=== PATIENT | female | born 1945 | race Caucasian/White ===

== ENCOUNTER 2016-05-26 11:39 | Inpatient (IN) | payer OTHER ==
--- NOTE | 2016-05-26 12:43 | PROVIDER DOCUMENTATION ---
HPI-General Adult <ChanDivina - Last Filed: 05/26/16 15:49> - General Source: patient, family - History of Present Illness -Gen Adult Nature of Presenting Problems: 71 year old WF c/o head ache, "the worst I have ever had," cough (productive yellow/green sputum), fever (max temp 100 at home) sore throat, fatigue, weakness, onset 4 days ago. pt reports she was exposed to grandchildren with fever, cough and congestion. pt reports she was evaluated by her PMD for these symptoms on Sunday, diagnosed as a viral infection, given a steroid injection. she then called her PMD back on because she was not improving. she was given a z-pack, which she has take for 2 days and still not improving. pt reports decreased intake for 4 days. pt is a diabetic and has not been taking her victoza and other diabetic medications as prescribed. <Kylee Lobo AlanAdelina - Last Filed: 05/26/16 20:16> - General Chief Complaint: Flu Symptoms Stated Complaint: HEADACHE/CONGESTION Time Seen by Provider: 05/26/16 11:52 Allergies/Adverse Reactions: Patient Allergies Allergy/AdvReac Type Severity Reaction Status Date / Time erythromycin base Allergy Severe ANAPHYLAXIS Verified 08/04/15 11:04 [Erythromycin Base] Sulfa (Sulfonamide Allergy Intermediate HIVES Verified 08/04/15 11:04 Antibiotics) Penicillins Allergy Unknown Unknown Verified 08/04/15 11:04 codeine AdvReac Mild NAUSEA/VOMI Verified 08/04/15 11:04 TING Latex, Natural Rubber AdvReac RASH Verified 08/05/15 07:12 Home Medications: Metformin [Glucophage] 2 tab PO BID CC 03/20/13 Oxcarbazepine 150 mg PO BID 03/20/13 Duloxetine [Cymbalta] 60 mg PO DAILY 08/04/15 L. Rhamnosus/Inulin [Culturelle Capsule] 1 each PO BID 08/04/15 Loperamide [Imodium] 2 mg PO PRN PRN 08/04/15 Losartan [Cozaar] 100 mg PO DAILY 08/04/15 Omeprazole 40 mg PO DAILY 08/04/15 Review of Systems - Adult - REVIEW OF SYSTEMS - ADULT Constitutional: reports: see HPI, chills, fever, fatique. denies: night sweats , weight gain, weight loss Eyes: reports: no symptoms reported. denies: discharge, blurred vision, double vision, eye pain, redness Ears, Nose, Mouth & Throat: reports: see HPI, sinus problem, nose pain, throat pain, throat swelling. denies: ear discharge, ear pain (bilateral ear pressure) , hearing loss, tinnitus, epistaxis, loose teeth, mouth/dental pain, mouth swelling, hoarseness Cardiovascular: reports: no symptoms reported. denies: chest pain, palpitations Respiratory: reports: see HPI, cough, shortness of breath. denies: chronic cough, dyspnea on exertion, excessive sputum production, hemoptysis, pleurisy, wheezing Gastrointestinal: reports: no symptoms reported. denies: abdominal pain, diarrhea, nausea, vomiting Genitourinary: reports: no symptoms reported. denies: dysuria, hematuria, urgency Musculoskeletal: reports: no symptoms reported. denies: bone pain, joint pain, joint swelling, neck pain Integumentary: reports: no symptoms reported Neurological: reports: see HPI, headache/migraines. denies: ataxia, dizziness/ vertigo, loss of balance, numbness, paresthesia, seizure, slurred speech, syncope, tremors Psychiatric: reports: no symptoms reported Endocrine: reports: no symptoms reported. denies: increased thirst, polyuria Hematologic/Lymphatic: reports: no symptoms reported Allergic/Immunologic: reports: no symptoms reported. denies: frequent infections All Other Systems: Reviewed and Negative <Kylee Lobo - Last Filed: 05/26/16 20:16> Past History - Adult - PAST MEDICAL HISTORY-ADULT Review of Records: reports: Old Records Reviewed, Nursing Assessment Review, Medications Reviewed, Social history reviewed & non-contributory. Major Childhood Illnesses: reports: denies history Cardiovascular: reports: HTN Respiratory: reports: asthma Gastrointestinal: reports: GERD Obstetrical/Gynecological: reports: denies history Genitourinary: reports: denies history Musculoskeletal: reports: denies history Neurological: reports: denies history Endocrine/Immune: reports: Diabetes Diabetes Type: Type 2 Diabetes controlled by:: Diet, PO Meds Other Conditions: reports: denies history - FAMILY HISTORY Family History: reviewed, not pertinent - SOCIAL HISTORY Smoking: denies Substance Use: none/never Alcohol Use Frequency: never <Kylee Lobo - Last Filed: 05/26/16 20:16> Physical Exam-General - PHYSICAL EXAM-ADULT Initial Vital Signs Reviewed: Yes - CONSTITUTIONAL General Appearance: appears well, alert, no apparent distress. negative: mild distress, moderate distress, severe distress, lethargic, slow to respond, obtunded, combative - EYES Eyes: pink conjunctivae. negative: conjuctival exudate, pale conjunctivae, sclera injected, scleral icterus, subconjunctival hemorrhage - HEAD, EARS, NOSE, MOUTH & THROAT HENMT: normocephalic/atraumatic, moist mucous membranes, pharyngeal erythema, TM abnormal (right TM with air fluid level), frontal tenderness, maxillary tenderness, other (temporal/sphnoidal sinus tenderness). negative: normal ENT inspection, TMs normal, pharynx normal, TM obscurred by cerumen - NECK Neck: non-tender, full range of motion, supple, normal inspection. negative: C- spine tenderness, limited range of motion, lymphadenopathy, tender lateral, tender midline - RESPIRATORY Respiratory: chest non-tender, lungs clear, normal breath sounds. negative: no pleuratic chest pain, no respiratory distress, no accessory muscle use, respiratory distress, decreased breath sounds, accessory muscle use, crackles, rales, rhonchi, stridor, wheezing - CARDIOVASCULAR Cardiovascular: normal peripheral pulses, regular rate, rhythm, no edema. negative: bradycardia, tachycardia - CHEST (BREASTS) Chest/Breast: no tenderness. negative: tenderness - GASTROINTESTINAL (ABDOMEN) Abdominal Exam: normal bowel sounds, non tender, soft. negative: distended, guarding, rigid, rebound, tenderness - GENITOURINARY Female Genitalia/Pelvic Exam: deferred Rectal Exam: deferred Hemoccult Exam: deferred - LYMPHATIC Lymphatic: no adenopathy. negative: cervical node tenderness - MUSCULOSKELETAL Back Exam: normal inspection, no CVA tenderness, no vertebral tenderness. negative: CVA tenderness, decreased range of motion, vertebral tenderness Extremity: normal range of motion, non-tender, normal gait, normal inspection, no pedal edema, no calf tenderness, normal capillary refill. negative: swelling , tenderness Peripheral Pulses: radial (R): 3+, radial (L): 3+, dorsalis-pedis (R): 3+, dorsalis-pedis (L): 3+ - SKIN Integumentary: normal color, normal turgor, warm/dry. negative: pallor, petechiae, purpura, rash - NEUROLOGIC Neurologic: solaris administrator II-XII nml as tested, grossly normal, no motor/sensory deficits . negative: abnormal gait, aphasia, EOM palsy, facial droop, focal weakness, motor weakness, sensory deficit - PSYCHIATRIC Psych/Mental Status: normal mood/affect, normal thought content, normal thought process, oriented x 3 <Kylee Lobo - Last Filed: 05/26/16 20:16> Progress - EKG 1 Time of EKG reading by physician:: 11:49 EKG Read and Signed by:: Nahid Ayon EKG Interpretation (*Must complete 3 of following elements*): Abnormal Rate: 74 Rhythm: normal sinus rhythm Comments: possible L atrial enlargement; L axis deviation; low voltage QRS <Divina Giles - Last Filed: 05/26/16 15:49> - PLAN OF CARE/RESULTS Progress/Plan/Lab Results: Notified pt of plan of care and treatment. Agrees and verbalized understanding. Laboratory Tests 05/26/16 05/26/16 05/26/16 13:02 13:30 13:30 WBC 17.81 H RBC 5.33 Hgb 16.2 H Hct 46.1 MCV 86.5 MCH 30.4 MCHC 35.1 RDW Std Deviation 13.1 Plt Count 276 MPV 10.2 Immature Gran % (Auto) 0.3 Neut % (Auto) 61.9 Lymph % (Auto) 28.5 Angelina % (Auto) 7.1 Eos % (Auto) 1.8 Baso % (Auto) 0.4 Immature Gran # (Auto) 0.05 H Neut # 11.01 H Lymph # 5.08 H Angelina # 1.27 H Eos # 0.32 Baso # 0.08 Specimen Type ARTERIAL Sample Site L RADIAL pH 7.44 pCO2 37 pO2 64 HCO3 25.7 Base Excess 1.2 Oxyhemoglobin 92.9 L ABG O2 Sat (Calculated) 20.1 ABG O2 Saturation 96.7 ABG Carboxyhemoglobin 2.40 ABG Methemoglobin 1.5 Danilo Test YES A-a O2 Difference 39.0 Total Hemoglobin 15.4 Lactate 1.80 Blood Gas Modality ROOM AIR FiO2 % 21.0 Sodium Potassium Chloride Carbon Dioxide Anion Gap BUN Creatinine Estimated GFR/1.73 m2 BUN/Creatinine Ratio Glucose Calculated Osmolality Calcium Total Bilirubin AST ALT Alkaline Phosphatase Total Protein Albumin Globulin Albumin/Globulin Ratio Plasma Lactate 2.7 H Urine Source Urine Color Urine Turbidity Urine pH Ur Specific [place] Urine Protein Ur Glucose (Stick) Ur Ketones (Stick) Urine Blood Urine Nitrite Urine Bilirubin Urobilinogen Dipstick Urine Leukocytes Urine WBC (Auto) Urine RBC (Auto) U Epithel Cells (Auto) Urine Bacteria (Auto) Acetone Level 05/26/16 05/26/16 13:30 16:12 WBC RBC Hgb Hct MCV MCH MCHC RDW Std Deviation Plt Count MPV Immature Gran % (Auto) Neut % (Auto) Lymph % (Auto) Angelina % (Auto) Eos % (Auto) Baso % (Auto) Immature Gran # (Auto) Neut # Lymph # Angelina # Eos # Baso # Specimen Type Sample Site pH pCO2 pO2 HCO3 Base Excess Oxyhemoglobin ABG O2 Sat (Calculated) ABG O2 Saturation ABG Carboxyhemoglobin ABG Methemoglobin Danilo Test A-a O2 Difference Total Hemoglobin Lactate Blood Gas Modality FiO2 % Sodium 136 Potassium 4.4 Chloride 98 Carbon Dioxide 25 Anion Gap 13 BUN 15 Creatinine 0.8 Estimated GFR/1.73 m2 > 60 BUN/Creatinine Ratio 19 Glucose 191 H Calculated Osmolality 278 Calcium 9.2 Total Bilirubin 0.29 AST 20 ALT 22 Alkaline Phosphatase 76 Total Protein 6.7 Albumin 3.8 Globulin 2.9 Albumin/Globulin Ratio 1.3 Plasma Lactate Urine Source CLEAN CATCH Urine Color YELLOW Urine Turbidity CLEAR Urine pH 6.5 Ur Specific [place] 1.010 Urine Protein NEGATIVE Ur Glucose (Stick) NEGATIVE Ur Ketones (Stick) NEGATIVE Urine Blood NEGATIVE Urine Nitrite NEGATIVE Urine Bilirubin NEGATIVE Urobilinogen Dipstick NORMAL Urine Leukocytes TRACE A Urine WBC (Auto) <10 Urine RBC (Auto) <10 U Epithel Cells (Auto) <10 Urine Bacteria (Auto) NEGATIVE Acetone Level NEGATIVE Orders Category Date Time Status Saline Loc NOW Care 05/26/16 12:34 Active Diabetic Diet Diet 05/26/16 14:12 Active HEAD W/O CONTRAST [CT] Stat Exams 05/26/16 12:38 Completed cxr [CHEST-2 VIEWS] [RAD] Stat Exams 05/26/16 12:09 Draft ABG [RESP] Routine Lab 05/26/16 13:02 Completed ACETONE SERUM [CHEM] Stat Lab 05/26/16 16:12 Completed BLOOD CULTURE [BLDCUL] Stat Lab 05/26/16 15:45 Results CBC WITH DIFF [HEME] Stat Lab 05/26/16 13:30 Completed CMP [COMPREHENSIVE METABOLIC PANEL] [CHEM] Stat Lab 05/26/16 16:12 Completed DIRECT STREP Stat Lab 05/26/16 13:06 Completed INFLUENZA SCREEN A/B Stat Lab 05/26/16 12:14 Completed LACTATE, PLASMA [CHEM] Stat Lab 05/26/16 13:30 Completed SPUTUM CULTURE WITH GRAM STAIN [RM] Routine Lab 05/26/16 13:35 Results UA NIMS W/REFLEX CULT [URINALYSIS] Stat Lab 05/26/16 13:30 Completed URINE CULTURE [RM] Routine Lab 05/26/16 14:04 Received 0.9% Sodium Chloride Inj [Ns] 1,000 ml Med 05/26/16 15:20 Discontinued IV 999 mls/hr Levofloxacin [Levaquin] 500 mg Med 05/26/16 14:52 Discontinued 0.9% Sodium Chloride Inj [Ns] 100 ml IV NOW Morphine Med 05/26/16 13:42 Discontinued 2 mg IV NOW ONE Ondansetron [Zofran] Med 05/26/16 13:42 Discontinued 4 mg IV NOW ONE Pulse Oximetry Stat Oth 05/26/16 12:34 Active EKG [EKG] Stat Ther 05/26/16 11:47 Draft Vital Signs - 24 hr 05/26/16 05/26/16 05/26/16 11:44 14:14 15:55 Temperature 97.7 F Pulse Rate 81 73 80 Respiratory 20 14 16 Rate Blood Pressure 198/82 157/64 117/60 O2 Sat by Pulse 98 96 93 L Oximetry Reviewed case with Dr. Ayon, agrees with plan of care and treatment. - XRAY 1 XRAY Study: Chest Impression: Normal (per Dr. Linares) - CT/MRI 1 CT Study: Head Impression: Abnormal (Complete ossification of the right maxiallary sinus and marked mucosal thickening in the left. There is mucosal thickening and fluid in most of the ethmoid air cells bilaterally. the left sphneoid sinus demonstrates mucosal thickening as well. The frontal sinuses are clear. No evidence of middle ear fluid or mastoid effusion. per Dr. Jacobson.) - CONSULTS/PCP/HOSPITALIST Notification #1 *Consult/PCP/Hospitalist*: Paged hospitalist-spoke with Jakub who will have hospitalist call back Time Discussed: 16:53 #2 Consult: Dr. Nix Time Discussed: 17:08 Consult Disposition: Will see in ED, Admit <Kylee Lobo - Last Filed: 05/26/16 20:16> Departure <Divina Giles - Last Filed: 05/26/16 15:49> - Departure Time of Disposition Order: 13:30 Certified Medical Emergency: Emergent <Kylee Lobo - Last Filed: 05/26/16 20:16> - Departure DIAGNOSIS: Sinusitis Qualifiers: Sinusitis location: sphenoidal Chronicity: acute Recurrence: non-recurrent Qualified Code(s): J01.30 - Acute sphenoidal sinusitis, unspecified Sepsis Qualifiers: Sepsis type: sepsis due to unspecified organism Qualified Code(s): A41.9 - Sepsis, unspecified organism Disposition: ADMITTED INPATIENT 09 Condition: Stable Attestation - Scribe Verification/Attestation Scribe:: Divina Giles Acting as Scribe for:: Nahid Ayon Scribe documention review:: This chart was documented by a scribe and accurately reflects the service the provider performed and the decisions made by the provider. <Divina Giles - Last Filed: 05/26/16 15:49> - Physician/ Mid-level Attestation Patient care was provided by Mid-level provider ([employer] SUPERVISOR/PA):: Yes Mid-level provider:: Kylee Lobo Mid-level documentation review:: The Mid-level provider documentation, treatment plan and medical decision making was reviewed by the physician who agrees with all treatment and medical decision making by the P. <Kylee Lobo - Last Filed: 05/26/16 20:16> Physician Attestation
--- NOTE | 2016-05-26 12:53 | EKG Report ---
Test Performed on : 05/26/2016 11:49:15 AM Test Reason : sob Blood Pressure : / mmHG Vent. Rate : 074 BPM Atrial Rate : 074 BPM P-R Int : 160 ms QRS Dur : 094 ms QT Int : 410 ms P-R-T Axes : 043 -36 048 degrees QTc Int : 455 ms Normal sinus rhythm. Possible Left atrial enlargement Left axis deviation Low voltage QRS Abnormal ECG When compared with ECG of 04-AUG-2015 11:19, No significant change was found Unconfirmed Result
[2016-05-26 13:12] LABS: ALLEN TEST YES; BE 1.2 mmoll (-3.0-3.0); BLOOD TYPE ARTERIAL; DRAW SITE L RADIAL; METHB 1.5 % (0.0-1.5); O2(CT) 20.1 mL/dL (15.0-23.0); PCO2(98.6) 37 mmHg (35-45); PO2(98.6) 64 mmHg (60-100); SAMPLE BLOOD; SAO2 96.7 % (95.0-100.0); THB 15.4 g/dL (11.5-17.4); pH(98.6) 7.44 (7.35-7.45)
[2016-05-26 13:13] LABS: MODALITY ROOM AIR
--- NOTE | 2016-05-26 13:28 | Diag Imaging Result Document ---
PROCEDURE NAME: HEAD W/O CONTRAST - 05/26/2016 CT OF THE HEAD WITHOUT CONTRAST: FINDINGS: There is no evidence of bleed, mass effect, or abnormal extraaxial fluid collection. There is generalized cerebral atrophy. There are no previous studies. There is complete opacification of the right maxillary sinus and marked mucosal thickening in the left. There is mucosal thickening and fluid in most of the ethmoid air cells bilaterally. The left sphenoid sinus demonstrates mucosal thickening as well. The frontal sinuses are clear. There is no evidence of middle ear fluid or mastoid effusion. IMPRESSION: Sinusitis as described. No evidence of acute intracranial disease.
[2016-05-26] MEDS ORDERED: MORPHINE IV ONE (13:42)
[2016-05-26] MEDS ORDERED: ZOFRAN IV ONE (13:42)
[2016-05-26 13:44] LABS: MANUAL DIFF NEEDED? NO; URINE MICRO REVIEW NEEDED? NO; URINE SOURCE CLEAN CATCH
[2016-05-26 13:57] LABS: BILIRUBIN URINE NEGATIVE (NEGATIVE); BLOOD URINE NEGATIVE (NEGATIVE); COLOR YELLOW; GLUCOSE URINE NEGATIVE (NEGATIVE); LEUKOCYTES URINE TRACE (NEGATIVE); NITRITE URINE NEGATIVE (NEGATIVE); PH URINE 6.5; PROTEIN URINE NEGATIVE (NEGATIVE); TURBIDITY URINE CLEAR (CLEAR); UR EPITHELIAL CELLS <10 /HPF (<10); URINE BACTERIA NEGATIVE /HPF; URINE CULTURE NEEDED? YES; URINE RBC <10 /HPF (<10); URINE WBC <10 /HPF (<10); UROBILINOGEN URINE NORMAL (NORMAL)
[2016-05-26 14:00] LABS: BASO% 0.4 % (0.0-0.8); EOS# 0.32 X1000 (0.0-0.7); EOS% 1.8 % (0.0-10.0); HEMATOCRIT 46.1 % (37.0-47.0); HEMOGLOBIN 16.2 g/dL (12.0-16.0); IMM GRAN# 0.05 X1000 (0.0-0.04); IMM GRAN% 0.3 % (0.0-0.5); LYMPH# 5.08 X1000 (1.2-3.4); LYMPH% 28.5 % (20.5-51.1); MCH 30.4 PG (27-31); MCHC 35.1 g/dL (33-37); MCV 86.5 FL (81-99); MONO# 1.27 X1000 (0.11-0.59); MONO% 7.1 % (1.7-9.3); MPV 10.2 FL (7.4-10.4); NEUT% 61.9 % (42.2-75.2); PLT 276 X1000 (130-400); RBC 5.33 XMIL (4.2-5.4)
[2016-05-26] MEDS ORDERED: LEVAQUIN 500 MG in NS 100 ML IV ONE (14:52)
--- NOTE | 2016-05-26 14:57 | Diag Imaging Result Document ---
PROCEDURE NAME: CHEST-2 VIEWS - 05/26/2016 CHEST X-RAY, 2 VIEWS: COMPARISON: 08/04/2015. FINDINGS: The lungs are normally expanded and clear. Heart size and mediastinal contours are normal. No pneumothorax or pleural effusion. IMPRESSION: Negative exam.
[2016-05-26] MEDS ORDERED: NS 1,000 ML IV ONE (15:20)
[2016-05-26 16:39] LABS: ACETONE SERUM NEGATIVE (NEGATIVE)
[2016-05-26 16:47] LABS: AGAP 13; ALBUMIN 3.8 g/dL (3.5-5.0); ALKALINE PHOSPHATASE 76 U/L (32-104); BUN 15 mg/dL (8-22); CALCIUM 9.2 mg/dL (8.8-10.2); CHLORIDE 98 mmol/L (98-107); COSMO 278; GOT 20 U/L (10-30); GPT 22 U/L (10-36); POTASSIUM 4.4 mmol/L (3.5-5.1); SODIUM 136 mmol/L (136-145); TCO2 25 mmol/L (25-35); TOTAL BILIRUBIN 0.29 mg/dL (0.20-1.00); TOTAL PROTEIN 6.7 g/dL (6.3-8.3)
[2016-05-26] MEDS: MORPHINE IV PRN (20:07)
[2016-05-26] MEDS ORDERED: DUONEB (A & A) INH PRN (20:22)
[2016-05-26] MEDS: NS 1,000 ML IV SCH (20:57)
[2016-05-26] MEDS: ZOFRAN IV PRN (20:57)
[2016-05-26] MEDS: DESYREL PO PRN (20:57)
[2016-05-26 21:00] LABS: HEMOGLOBIN A1C 8.7 % (4.8-6.0)
[2016-05-26] MEDS: MERREM 1 GM in NS 50 ML IV SCH (21:00)
[2016-05-26] MEDS: HUMALOG SUBQ SCH (21:11)
--- NOTE | 2016-05-26 21:43 | HISTORY AND PHYSICAL ---
CHIEF COMPLAINT: Cold-like symptoms. HISTORY OF PRESENT ILLNESS: Mrs. Seals is a 71-year-old female with a history of type 2 diabetes, hypertension, hyperlipidemia, who presents with chest congestion, cough, headache, shortness of breath and sinus pain and pressure. She also reports a low-grade fever. She went to her PCP last week and got a steroid shot and antibiotics, these were unsuccessful in treating her symptoms. Symptoms progressed to severe headache, nasal discharge, cough with green sputum production and overall malaise. She tried a 2nd round of antibiotics and these 2 were unsuccessful and she came to the ER for evaluation. She denies any overt chest pain. She does report mild shortness of breath. There is no lower extremity edema or orthopnea. She does report blurry vision but no focal deficits. When she came to the ER she was noted to have leukocytosis, mildly elevated lactic acid but otherwise unremarkable labs. Her head CT showed fairly acute left- sided sinusitis but no intracranial disease. A chest x-ray was done and it did not show anything acute. Blood cultures were obtained in the ER and antibiotics were initiated. We are going to admit the patient for sepsis. PAST MEDICAL HISTORY: 1. Type 2 diabetes. 2. Hypertension. 3. Hyperlipidemia. 4. Childhood asthma. SURGICAL HISTORY: Partial hysterectomy, appendectomy, cholecystectomy, eardrum procedure. SOCIAL HISTORY: Patient denies tobacco, alcohol, or drug use. She is and retired. FAMILY HISTORY: Noncontributory. REVIEW OF SYSTEMS: Ten-point review of systems obtained and found to be negative with the exception of the HPI. ALLERGIES: TO ERYTHROMYCIN, SULFA, PENICILLIN, CODEINE AND LATEX. HOME MEDICATIONS: Currently not updated but previous list shows oxcarbazepine 150 mg b.i.d., Zofran 4 mg as needed, omeprazole 40 mg daily, metformin 1000 mg p.o. b.i.d., Cozaar 100 mg p.o. daily, Imodium as needed, Colver 10 as needed and Cymbalta 60 daily. PHYSICAL EXAMINATION: VITAL SIGNS: Blood pressure is 137/64, heart rate 81, respiratory rate 16, O2 saturation 94% on room air. Temperature is 98.5 degrees. GENERAL: Well developed, well nourished female lying in hospital bed. No acute distress. NEUROLOGIC: She is awake, alert, oriented. She follows commands without focal deficits. HEENT: Head atraumatic, normocephalic. Pupils are equal, round, and reactive to light. There is sinus tenderness to palpation. Oral mucosa is moist. Oropharynx is clear. She does have some mild tonsillar erythema. NECK: Supple. There is anterior cervical lymphadenopathy. CHEST: Overall clear to auscultation bilaterally. CV: Regular rate and rhythm. S1-S2 is noted. No murmurs, gallops, clicks, rubs. GI: Soft, nondistended, nontender. Bowel sounds positive. EXTREMITIES: Without edema, clubbing or cyanosis. Pulses are palpable bilaterally. DIAGNOSTIC DATA: Head CT shows acute left maxillary sinusitis. Chest x-ray negative. ASSESSMENT AND PLAN: 1. Sepsis: Patient meets criteria for sepsis with low-grade fever, leukocytosis, lactic acid production. Blood cultures, sputum cultures and throat cultures have been obtained, we will add Merrem and SHE IS ALLERGIC TO PENICILLIN. Will continue IV fluid hydration and pain medication as well. 2. Sinusitis: Blood cultures have been obtained. Continue Merrem, add breathing treatments as well for upper respiratory congestion. 3. Diabetes mellitus: Will check a hemoglobin A1c in the morning, add pattern blood sugars and sliding scale insulin. 4. Hypertension: Will restart her medications once they become available in the computer. 5. Hyperlipidemia: Chronic and stable. Will continue her medications once they become available. 6. Deep vein thrombosis prophylaxis with Lovenox. Further recommendations to follow. Dictated by DULCE MARIA Castillo for Cj Langston MD
[2016-05-26] MEDS: DUONEB (A & A) INH SCH (23:12)
[2016-05-27] MEDS: DUONEB (A & A) INH SCH ×6 (03:56→22:44)
[2016-05-27] MEDS: MERREM 1 GM in NS 50 ML IV SCH ×3 (05:22→21:15)
[2016-05-27] MEDS: NS 1,000 ML IV SCH ×3 (05:23→21:15)
[2016-05-27] MEDS: HUMALOG SUBQ SCH ×4 (06:45→21:21)
[2016-05-27 06:57] LABS: HEMATOCRIT 36.7 % (37.0-47.0); HEMOGLOBIN 12.5 g/dL (12.0-16.0); MCHC 34.1 g/dL (33-37); MPV 9.6 FL (7.4-10.4); RBC 4.17 XMIL (4.2-5.4)
[2016-05-27 07:33] LABS: AGAP 12; BUN 12 mg/dL (8-22); CALCIUM 8.1 mg/dL (8.8-10.2); CHLORIDE 102 mmol/L (98-107); COSMO 284; POTASSIUM 4.1 mmol/L (3.5-5.1); SODIUM 140 mmol/L (136-145); TCO2 26 mmol/L (25-35)
[2016-05-27] MEDS: MORPHINE IV PRN ×2 (08:38→21:22)
[2016-05-27] MEDS: LOVENOX SUBQ SCH (08:38)
[2016-05-27] MEDS: ZOFRAN IV PRN ×2 (08:42→21:22)
--- NOTE | 2016-05-27 18:19 | PROGRESS NOTE ---
DATE: 05/27/2016 SUBJECTIVE: This patient states that she is feeling better but she is still having face pain, she denies nausea, vomiting, diarrhea, constipation. No fever or chills. OBJECTIVE: Vital Signs: Temperature 99 degrees, pulse 81, respiratory rate 19, blood pressure 146/50, O2 saturation 100% on nasal cannula. HEENT: Head normocephalic. No trauma. PERRLA. There is sinus tenderness to palpation mostly, oral mucosa is moist. Mild tonsillar erythema. Neck: Supple. No JVD. No masses. Anterior cervical lymphadenopathy. Chest: Clear to auscultation. No wheezing. No rales. Cardiovascular: RRR. No murmurs. No gallops. No rubs. Abdomen: Soft, nontender, nondistended. No hepatosplenomegaly. Extremities: No edema. No clubbing. No cyanosis. Neurological: The patient is alert and oriented x3. No focal neurological deficits. LABORATORY: WBC 9.3, hemoglobin 12.5, hematocrit 36.7, platelets 191,000. Sodium 140, potassium 4.1, chloride 102, bicarbonate 26, BUN 12, creatinine 0.8, glucose 192, calcium 8.1. ASSESSMENT AND PLAN: 1. Sinusitis. Will continue with the antibiotics, she is on Merrem. SHE IS ALLERGIC TO PENICILLIN. I will continue with IV fluid and hydration. 2. Sepsis resolved. 3. Type 2 diabetes. We will continue with the pattern of blood sugars and sliding scale insulin. 4. Hypertension. We will continue with her blood pressure medication. 5. Hyperlipidemia. This is chronic and stable. Continue with medications.
[2016-05-28] MEDS: DUONEB (A & A) INH SCH ×6 (02:55→23:15)
[2016-05-28] MEDS: MERREM 1 GM in NS 50 ML IV SCH ×3 (03:56→22:29)
[2016-05-28] MEDS: NS 1,000 ML IV SCH ×4 (03:56→22:29)
[2016-05-28] MEDS: HUMALOG SUBQ SCH ×4 (06:06→22:29)
[2016-05-28 07:11] LABS: CALCIUM 8.1 mg/dL (8.8-10.2); POTASSIUM 4.5 mmol/L (3.5-5.1)
[2016-05-28] MEDS: LOVENOX SUBQ SCH (08:06)
[2016-05-28 08:42] LABS: HEMATOCRIT 34.5 % (37.0-47.0); HEMOGLOBIN 11.4 g/dL (12.0-16.0); MCH 29.6 PG (27-31); MCV 89.6 FL (81-99); RBC 3.85 XMIL (4.2-5.4)
[2016-05-28] MEDS: ZOFRAN IV PRN ×2 (11:10→18:45)
[2016-05-28] MEDS: MORPHINE IV PRN ×2 (11:10→18:45)
--- NOTE | 2016-05-28 15:53 | PROGRESS NOTE ---
DATE: 05/28/2016 SUBJECTIVE: This patient states that she is feeling better. She is still complaining about facial pain, mostly her forehead, she denies nausea, vomiting, diarrhea, constipation, fever or chills. OBJECTIVE: Vital Signs: Temperature 97.9 degrees, pulse 83, respiratory rate 15, blood pressure 141/53, oxygen saturation 93% on room air. HEENT: Head normocephalic. No trauma. PERRLA. There is sinus tenderness to palpation, mostly on the forehead and bilaterally. Neck: Supple. No JVD. No masses. Anterior cervical lymphadenopathy. Chest: Clear to auscultation. No wheezing. No rales. Cardiovascular: Regular rhythm and rate. No murmurs. No gallops. No rubs. Abdomen: Soft, nontender, nondistended. No hepatosplenomegaly. Extremities: No edema. No clubbing. No cyanosis. Neurological: The patient is alert and oriented x3. No focal neurological deficits. LABORATORY: WBC 9.3, hemoglobin 11.4, hematocrit 34.5, platelets 183,000. Sodium 141, potassium 4.5, chloride 104, bicarbonate 26, BUN 12, creatinine 1, glucose 180, calcium 8.1. ASSESSMENT AND PLAN: 1. Sinusitis. I will continue with the antibiotics. She is on Merrem. She is allergic to penicillin. I will continue with IV fluid and hydration. 2. Sepsis, resolved. 3. Type 2 diabetes. We will continue with the pattern blood sugars and sliding scale insulin. 4. Hypertension. I will continue with her blood pressure medication. 5. Hyperlipidemia this is chronic and stable. Continue with medications.
[2016-05-29] MEDS: DUONEB (A & A) INH SCH ×6 (03:21→23:38)
[2016-05-29] MEDS: MERREM 1 GM in NS 50 ML IV SCH ×3 (05:00→21:02)
[2016-05-29] MEDS: HUMALOG SUBQ SCH ×4 (06:04→23:25)
[2016-05-29 06:41] LABS: HEMOGLOBIN 11.3 g/dL (12.0-16.0)
[2016-05-29 06:55] LABS: HEMATOCRIT 34.1 % (37.0-47.0); MCHC 33.1 g/dL (33-37); MCV 90.5 FL (81-99); MPV 9.6 FL (7.4-10.4); RBC 3.77 XMIL (4.2-5.4)
[2016-05-29 07:10] LABS: CALCIUM 8.7 mg/dL (8.8-10.2); POTASSIUM 4.3 mmol/L (3.5-5.1)
[2016-05-29] MEDS: LOVENOX SUBQ SCH (08:45)
[2016-05-29] MEDS: NS 1,000 ML IV SCH ×2 (08:45→23:28)
[2016-05-29 09:42] LABS: INR 0.97; PROTIME 10.3 Seconds (9.2-11.7)
--- NOTE | 2016-05-29 11:13 | CONSULTATION ---
DATE OF CONSULTATION: 05/29/2016 CONCLUSION: The patient has pansinusitis. Although the CT scan showed involvement of all the sinuses, except the frontal sinuses, on physical exam, the frontal sinuses were very tender. Therefore, I think that there is an element of frontal sinusitis as well as the other sinusitis, and because of that, I think the patient would be considered to have pansinusitis. I think there is a possibility that the patient has an immunoglobulin deficiency. RECOMMENDATIONS: Because of the patient's penicillin allergy, I agree with treating the patient with meropenem. A PICC will be needed and I am going to put a consult in for [facility] to supply the patient's antibiotics. I plan to see her back in the office in 3 weeks, at which time, we will see how she is doing and probably repeat her CAT scan to see if everything is clearing. If the immunoglobulin levels are low, then wait a few weeks and order them again. If they are still low, then I think the patient would merit being put on gammaglobulin replacement therapy. DISCUSSION: This elderly female in the past 2 weeks has had very severe head congestion and pain. She also has been having chest congestion as well. She coughs, but does not bring up any sputum. LABORATORY STUDIES: Thus far show a CBC with a white count of 8570, hemoglobin 11.3, and platelet count 183,000. Creatinine is 1.0 GFR is 54. Urine culture grew strep. Blood cultures show no growth. 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 She has had a hysterectomy. REVIEW OF SYSTEMS: Eyes and ears: Patient denies having difficulty hearing or seeing. Neck: No stiffness. HEENT: As mentioned above, the patient is having very severe headache. She feels very congested in her head due to sinusitis. She can hear my spoken words and see near objects. Examination of the oral cavity showed no white patches. Neck: No meningismus. Thorax: No increased AP diameter to the chest. Lungs: Clear to auscultation. Cardiovascular: No chest pain or palpitations. GI: No nausea, vomiting, or diarrhea. : No dysuria or flank pain. Hematologic: No history of anemia or bleeding tendency. Endocrine: The patient is diabetic, but she does not have thyroid disease. PAST MEDICAL HISTORY: Infectious disease history: Positive for urinary tract infection and recurrent sinusitis. FAMILY HISTORY: Positive for diabetes mellitus, hypertension, myocardial infarction, and cancer. SOCIAL HISTORY: [place] She is . She lives alone. Does not have any pets. ALLERGIES: She has an allergy to erythromycin manifested by anaphylaxis. To sulfa, manifested by hives. To penicillin, the allergy is unknown. She is allergic to codeine and sounds like more it is an adverse reaction, rather than a true allergy. Anyway, the manifestation is nausea and vomiting. Patient also has an allergy to latex and natural rubber, which causes her to have a rash. HOME MEDICATIONS: Include the following: Oxcarbazepine, Zofran, omeprazole, insulin, Cymbalta, Cozaar, Victoza and Amaryl. PHYSICAL EXAMINATION: Vital Signs: Temperature is 98.2, pulse 84, respirations 14, blood pressure 168/68. General: This is an ill-appearing, elderly female. She is in no acute distress. HEENT: She can hear my spoken words and see near objects. No drainage noted from the nose or ears. Examination of the oral cavity shows no white patches. The patient's frontal and maxillary sinuses were very tender when I applied pressure to them. Lungs: Clear to auscultation. Cardiovascular: Regular heart rate. Abdomen: Abdomen and flank soft and nontender. Neurologic: Patient is alert. She can move her extremities. There is no tremor. Her sensation is intact to touch. Her memory, as regarding her medical history is intact also. Thank you for the consult.
[2016-05-29] MEDS: ZOFRAN IV PRN ×2 (11:35→18:32)
[2016-05-29] MEDS: MORPHINE IV PRN ×2 (11:35→18:32)
--- NOTE | 2016-05-29 13:23 | PROGRESS NOTE ---
DATE: 05/29/2016 SUBJECTIVE: This patient states that she is feeling better. She is still complaining about facial pain, but compared with yesterday, it is better. OBJECTIVE: Vital Signs: Temperature 98.2 degrees, pulse 80, respiratory rate 14, blood pressure 168/68, oxygen saturation 96 on nasal cannula. HEENT: Head normocephalic. No trauma. PERRLA. There is sinus tenderness to palpation, mostly on the forehead bilaterally. Neck: Supple. No JVD. No masses. Anterior cervical lymphadenopathy. Chest: Clear to auscultation. No wheezing. No rales. Cardiovascular: Regular rate and rhythm. No murmurs. No gallops. No rubs. Abdomen: Soft, nontender, nondistended. No hepatosplenomegaly. Extremities: No edema, no cyanosis, no clubbing. Neurological: The patient is alert and oriented x3. No focal neurological deficits. LABORATORY DATA: WBC 8.5, hemoglobin 11.3, hematocrit 34.1, platelets 193,000. Sodium 139, potassium 4.3, chloride 102, bicarbonate 26, BUN 13, creatinine 1, glucose 195, calcium 8.7. ASSESSMENT AND PLAN: 1. Sinusitis. We will continue with antibiotics. She is on Merrem. She is allergic to penicillin. This patient will get a peripherally-inserted central catheter line, and probably this patient will be discharged on these antibiotics. 2. Sepsis, resolved. 3. Type 2 diabetes. We will continue with patterned blood sugars and sliding scale insulin. 4. Hypertension. We will continue with her blood pressure medication. 5. Hyperlipidemia. This is chronic and stable. Continue with home medications.
[2016-05-30] MEDS: NS 1,000 ML IV SCH ×2 (02:56→13:16)
[2016-05-30] MEDS: DUONEB (A & A) INH SCH ×6 (03:37→23:06)
[2016-05-30] MEDS: MERREM 1 GM in NS 50 ML IV SCH ×2 (05:00→18:51)
[2016-05-30] MEDS: HUMALOG SUBQ SCH ×4 (06:42→22:32)
[2016-05-30] MEDS ORDERED: DULCOLAX PO ONE (08:17)
[2016-05-30] MEDS ORDERED: VANCOMYCIN IV PER PHARMACY MISC SCH (08:30)
--- NOTE | 2016-05-30 08:47 | PROGRESS NOTE ---
DATE: 05/30/2016 PRESENT ILLNESS: The patient has pansinusitis. She states that her sinuses are even bothering her more now. She is having headaches and a lot of congestion. In addition, the patient tells me that she has not had a bowel movement for 3 days and would like to have 1. She wants a pill to be taken by mouth to help her have a bowel movement. Finally, the patient may have an immunoglobulin deficiency. The patient does have a Streptococcal urinary tract infection which now seems asymptomatic. MEDICATIONS: The patient is receiving meropenem. PHYSICAL EXAMINATION: Vital Signs: Temperature is 98.1 degrees, pulse 90, respirations 15, blood pressure 162/60. General: This is an ill-appearing, elderly female. She is in no acute distress. Head, Eyes, Ears, Nose, Throat: No drainage noted from the nose or ears. She is very tender over her frontal and maxillary sinuses. Lungs: Clear to auscultation. Cardiovascular: Heart rate is regular. Abdomen: Soft and nontender. LAB AND X-RAY: There is no new lab or x-ray today. ASSESSMENT AND PLAN: As far as the patient's sinusitis goes, I am adding vancomycin to provide coverage for methicillin-resistant Staph aureus. Also, I am adding Flonase to help the patient have her sinuses drained. As regarding her constipation, I have ordered Dulcolax tablets to give her 1 now and then 1 daily on a p.r.n. basis. The patient, while not needing treatment of her urinary tract infection, will in fact be getting treatment by virtue of the fact of the antibiotic she is getting for her sinusitis. The patient's comorbidities include that she is elderly. As mentioned above, she may have an immunoglobulin deficiency. The patient also has diabetes mellitus as a comorbid factor.
[2016-05-30] MEDS ORDERED: VANCOMYCIN 1,500 MG in NS 250 ML IV ONE (09:00)
[2016-05-30] MEDS: LOVENOX SUBQ SCH (09:40)
--- NOTE | 2016-05-30 10:32 | CONSULTATION ---
DATE OF CONSULTATION: 05/29/2016 ADDENDUM REPORT: MEDICAL HISTORY: This includes type 2 diabetes, hypertension, hyperlipidemia and childhood asthma. SURGICAL HISTORY: Positive for hysterectomy, appendectomy, cholecystectomy and ear drum procedure.
[2016-05-30] MEDS: FLONASE NAS SCH ×2 (13:15→22:25)
[2016-05-30] MEDS: MORPHINE IV PRN ×2 (13:17→20:22)
[2016-05-30] MEDS: ZOFRAN IV PRN ×2 (13:18→20:22)
[2016-05-30] MEDS ORDERED: BENADRYL IV ONE (14:33)
--- NOTE | 2016-05-30 16:48 | PROGRESS NOTE ---
DATE: 05/30/2016 SUBJECTIVE: The patient states that she is not feeling well. She feels more pressure in the face. Infectious Disease Department evaluated this patient and they added vancomycin to her medications and Flonase. Will monitor. OBJECTIVE: Vital Signs: Temperature 99.1 degrees, pulse 91, respiratory rate 16, blood pressure 153/69, O2 saturation 95 on room air. HEENT: Head normocephalic. No trauma. PERRLA. There is sinus tenderness to palpation mostly on the forehead bilaterally and also all in the paranasal area. Neck: Supple. No JVD. No masses. Anterior cervical lymphadenopathy is present. Chest: Clear to auscultation. No wheezing. No rales. Abdomen: Soft, nontender, nondistended. No hepatosplenomegaly. Positive bowel sounds. Cardiovascular: RRR. No murmurs. No gallops. No rubs. Extremities: No edema. No clubbing. No cyanosis. Neurological: The patient is alert and oriented x3. No focal neurological deficits. LABORATORY: No lab work today. ASSESSMENT AND PLAN: 1. Sinusitis. We will continue with the antibiotics. She is on Merrem. Infectious Disease Department added vancomycin. She will get a PICC line and probably she will be discharged, I am assuming, in 1 or 2 days to home with home antibiotics. 2. Sepsis, resolved. 3. Type 2 diabetes. This patient has been receiving more than 20 units per day. I am going to put this patient on 15 of Lantus and I will adjust the medication as needed. 4. Hypertension. Will continue with her blood pressure medication. 5. Hyperlipidemia. This is chronic and stable. Continue with home medications.
[2016-05-30] MEDS ORDERED: INSULIN PEN NEEDLES ONE (22:21)
[2016-05-30] MEDS: LANTUS SUBQ SCH (22:27)
[2016-05-31] MEDS: NS 1,000 ML IV SCH ×2 (00:55→12:49)
[2016-05-31] MEDS: MERREM 1 GM in NS 50 ML IV SCH ×3 (02:25→18:38)
[2016-05-31] MEDS: DUONEB (A & A) INH SCH ×6 (03:40→22:56)
[2016-05-31] MEDS: HUMALOG SUBQ SCH ×4 (06:02→21:16)
[2016-05-31 06:34] LABS: MANUAL DIFF NEEDED? NO
[2016-05-31 06:40] LABS: BASO% 0.6 % (0.0-0.8); EOS# 0.32 X1000 (0.0-0.7); HEMOGLOBIN 11.5 g/dL (12.0-16.0); IMM GRAN# 0.05 X1000 (0.0-0.04); IMM GRAN% 0.6 % (0.0-0.5); LYMPH# 2.02 X1000 (1.2-3.4); LYMPH% 25.3 % (20.5-51.1); MCH 29.7 PG (27-31); MCHC 32.9 g/dL (33-37); MCV 90.4 FL (81-99); MONO# 0.61 X1000 (0.11-0.59); MONO% 7.6 % (1.7-9.3); MPV 9.9 FL (7.4-10.4); NEUT% 61.9 % (42.2-75.2); PLT 208 X1000 (130-400); RBC 3.87 XMIL (4.2-5.4)
[2016-05-31] MEDS ORDERED: DULCOLAX PO PRN (08:00)
[2016-05-31] MEDS: ZYVOX PO SCH ×2 (08:49→21:15)
[2016-05-31 08:50] LABS: AGAP 12; BUN 12 mg/dL (8-22); CALCIUM 8.6 mg/dL (8.8-10.2); CHLORIDE 101 mmol/L (98-107); COSMO 280; POTASSIUM 4.3 mmol/L (3.5-5.1); SODIUM 139 mmol/L (136-145); TCO2 26 mmol/L (25-35)
[2016-05-31] MEDS: LOVENOX SUBQ SCH (08:50)
[2016-05-31] MEDS: MORPHINE IV PRN ×3 (08:50→21:15)
[2016-05-31] MEDS ORDERED: VANCOMYCIN 1 GM/NS 250 ML IV SCH (09:00)
[2016-05-31] MEDS: ZOFRAN IV PRN ×3 (09:00→21:23)
[2016-05-31] MEDS ORDERED: NS 250 ML ONE (09:26)
[2016-05-31] MEDS: FLONASE NAS SCH ×2 (12:53→21:15)
--- NOTE | 2016-05-31 14:29 | PROGRESS NOTE ---
DATE: 05/31/2016 SUBJECTIVE: This patient states that he is feeling a little bit better compared with yesterday but she is still complaining of facial pain and pressure. Infectious Disease Department yesterday put her on vancomycin but she had a reaction and now it was switched to linezolid. OBJECTIVE: Vital Signs: Temperature 98.7 degrees, pulse 80, respiratory rate 18, blood pressure 154/95, O2 saturation 96% on nasal cannula. HEENT: Head normocephalic. No trauma. PERRLA. There is sinus tenderness to palpation mostly on the forehead bilaterally and also paranasal area. Neck: Supple. No JVD. No masses. Anterior cervical lymphadenopathy present. Chest: Clear to auscultation. No wheezing. No rales. Abdomen: Soft, nontender, nondistended. No hepatosplenomegaly. Positive bowel sounds. Extremities: No edema. No clubbing. No cyanosis. Neurological: Patient is alert and oriented x2. No neurological deficits. LABORATORY: WBC 7.9, hemoglobin 11.5, hematocrit 35, platelets 208,000. Sodium 139, potassium 4.3, chloride 101, bicarbonate 26, BUN 12, creatinine 0.9, glucose 145, calcium 8.6. ASSESSMENT AND PLAN: 1. Sinusitis. We will continue with the antibiotics, stopped Vancomycin and and we added linezolid. She got a PICC line, and once she is better she will be discharged with home IV antibiotics. I am assuming that she will stay hospitalized for 1 or 2 more days with antibiotics. 2. Sepsis. Resolved. 3. Type 2 diabetes. It is better controlled. I will continue with the Lantus, her hemoglobin A1c 8.7, so her diabetes is uncontrolled. 4. Hypertension. Continue with the blood pressure medication. Will monitor. 5. Hyperlipidemia. This is chronic and stable. Continue with home medications. [facility]
--- NOTE | 2016-05-31 15:56 | PROGRESS NOTE ---
DATE: 05/31/2016 PRESENT ILLNESS: The patient has pansinusitis. MEDICATIONS: She is getting meropenem intravenously. We tried giving the patient vancomycin last night, and she developed diffuse pruritus. I went ahead and stopped the vancomycin and have put the patient on Zyvox by mouth. PHYSICAL EXAMINATION: Vital Signs: Temperature is 98.7 degrees, pulse 80, respirations 18, blood pressure 154/95. Generally, this is an ill-appearing, elderly female. She is in no acute distress. Head, eyes, ears, nose, and throat: She can hear my spoken words and see near objects. No drainage noted from the nose or ears. There is tenderness over the frontal and maxillary sinuses. Neck: No meningismus. Extremities: The patient has a PICC in place in her arm. The site is not erythematous or swollen. Lungs clear to auscultation. Cardiovascular: Regular heart rate. Abdomen soft and nontender. Skin-no rash. LABORATORY DATA AND X-RAY: The patient's CBC for today shows a white count of 7980, hemoglobin 11.5 and platelet count 208,000. Creatinine is 0.9. GFR is greater than 60. The patient's IgA level was normal at 214. Her IgG level was reduced at 568. ASSESSMENT AND PLAN: The patient has pansinusitis. She has a decrease in the IgG level. I am uncertain whether this is clinically significant or not and, also, whether she has a transient decrease in her IgG level due to her illness now rather than the patient having a low IgG level which predisposes her to get infection. Therefore, I am going to continue with the meropenem and the Flonase I started on the patient and then, as an outpatient, I will recheck her IgG level to see if it is coming up or not. If it keeps falling then I think she would be a candidate for gammaglobulin replacement therapy. Also, I have made a consult request to Dr. Indra Chavira or Dr. Juan José Dolan to see the patient as an outpatient in their office because of her pansinusitis. I put a consult in for [facility] to supply the meropenem at home. The patient's comorbidities include she is diabetic, and she may have a low IgG level. [facility]
[2016-05-31] MEDS ORDERED: INSULIN PEN NEEDLES ONE (16:43)
[2016-05-31] MEDS: LANTUS SUBQ SCH (21:17)
[2016-06-01] MEDS: MERREM 1 GM in NS 50 ML IV SCH ×3 (01:35→18:08)
[2016-06-01] MEDS: ZOFRAN IV PRN (03:37)
[2016-06-01] MEDS: DUONEB (A & A) INH SCH ×6 (04:06→23:01)
[2016-06-01] MEDS: HUMALOG SUBQ SCH ×4 (06:34→20:12)
[2016-06-01 06:50] LABS: BASO% 0.5 % (0.0-0.8); EOS# 0.26 X1000 (0.0-0.7); HEMATOCRIT 35.7 % (37.0-47.0); HEMOGLOBIN 11.6 g/dL (12.0-16.0); IMM GRAN# 0.05 X1000 (0.0-0.04); IMM GRAN% 0.4 % (0.0-0.5); LYMPH# 1.82 X1000 (1.2-3.4); LYMPH% 13.7 % (20.5-51.1); MANUAL DIFF NEEDED? YES; MCH 29.3 PG (27-31); MCHC 32.5 g/dL (33-37); MCV 90.2 FL (81-99); MONO# 0.66 X1000 (0.11-0.59); MPV 9.4 FL (7.4-10.4); NEUT% 78.4 % (42.2-75.2); PLT 253 X1000 (130-400); RBC 3.96 XMIL (4.2-5.4)
[2016-06-01 07:17] LABS: AGAP 13; BUN 14 mg/dL (8-22); CALCIUM 8.6 mg/dL (8.8-10.2); CHLORIDE 101 mmol/L (98-107); COSMO 284; POTASSIUM 4.3 mmol/L (3.5-5.1); SODIUM 139 mmol/L (136-145); TCO2 25 mmol/L (25-35)
[2016-06-01 07:28] LABS: BANDS 1 % (0-1); EOS 1 % (1-10); LYMPHS 15 % (21-51); MONO 3 % (1-9)
[2016-06-01] MEDS ORDERED: DULCOLAX PR ONE (11:34)
[2016-06-01] MEDS: NS 1,000 ML IV SCH ×3 (11:56→20:31)
[2016-06-01] MEDS: FLONASE NAS SCH ×2 (11:58→20:31)
[2016-06-01] MEDS: LOVENOX SUBQ SCH (11:58)
[2016-06-01] MEDS: ZYVOX PO SCH ×2 (11:58→20:30)
--- NOTE | 2016-06-01 14:10 | PROGRESS NOTE ---
DATE: 06/01/2016 PRESENT ILLNESS: The patient has pansinusitis. MEDICATIONS: The patient is getting meropenem intravenously and Zyvox by mouth. PHYSICAL EXAMINATION: Vital Signs: Temperature is 97.7 degrees, pulse 77. Respirations 16. Blood pressure 131/58. General: This is a fairly healthy-appearing, elderly female. She is in no acute distress. Ear, Nose And Throat: No drainage noted from the nose or ears. Sinuses are much less tender. Lungs: Clear to auscultation. Cardiovascular: Regular heart rate. Abdomen: Soft and nontender. LAB AND X-RAY: The patient's CBC shows a white count of 13,240. Hemoglobin 11.6 and platelet count 253,000. Creatinine is 0.9. There is no radiographic study done today. ASSESSMENT AND PLAN: Patient has pansinusitis and a decrease in her IgG level. I would continue with the current antibiotics and some time in a few weeks when the patient is feeling better. Repeat her IgG level. The patient may be going to a rehab facility first. I have put in a consult for [facility] to supply the patient's IV meropenem at home either if the patient goes home directly or if she goes home after being in a rehab facility for a while. The patient's main comorbidities include diabetes mellitus and possibly a low IgG level.
--- NOTE | 2016-06-01 14:53 | PROGRESS NOTE ---
DATE: 06/01/2016 SUBJECTIVE: This patient states that she is still in pain, facial pain. Infectious Disease department is on board and she will continue with the same antibiotics. She is complaining today of constipation and we will add Dulcolax OR x1 and also p.o. as scheduled. OBJECTIVE: Vital Signs: Temperature 97.7, pulse 77, respiratory rate 16, blood pressure 131/58. Oxygen saturation 96 on 2 L of nasal cannula. HEENT: Head normocephalic. No trauma. PERRLA. There is a sinus tenderness to palpation mostly on the forehead bilaterally and also paranasal area. Neck: Supple. No JVD. Anterior cervical lymphadenopathy present. Chest: Clear to auscultation. No wheezing. No rales. Abdomen: Soft, nontender, nondistended. No hepatosplenomegaly. Bowel sounds present. Extremities: No edema. No clubbing. No cyanosis. Neurological: The patient is alert and oriented x2. No neurological deficits. LABORATORY: WBC 13.2, hemoglobin 11.6, hematocrit 35.7, platelets 253. Sodium 139, potassium 4.3, chloride 101, bicarbonate 25, BUN 14, creatinine 0.9, glucose 201. ASSESSMENT AND PLAN: 1. Sinusitis we will continue with antibiotics. She has a PICC line. We will continue with IV antibiotics upon discharge once this patient is ready to go home/rehabilitation center. 2. Sepsis, resolved. 3. Type 2 diabetes. The glucose is high, I will increase her Lantus from 15-25 and let us see how she does. 4. Hypertension. This patient is not on blood pressure medication at this moment. She used to be on losartan at home. I will add it to her medications. 5. Hyperlipidemia. Continue monitoring. This patient is still complaining about pain. She has been on pain medication and broad-spectrum antibiotics. Infectious Disease department, Dr. Stafford, is following this patient. For now, we will continue with the same plan, and probably we will need to discharge this patient to a rehab center once this patient is ready to go.
[2016-06-01] MEDS: DESYREL PO PRN (20:31)
[2016-06-01] MEDS ORDERED: DULCOLAX PO SCH (21:00)
[2016-06-01] MEDS ORDERED: LANTUS SUBQ SCH (21:00)
[2016-06-02] MEDS: MERREM 1 GM in NS 50 ML IV SCH ×2 (03:00→09:37)
[2016-06-02] MEDS: DUONEB (A & A) INH SCH ×3 (04:06→11:40)
[2016-06-02] MEDS: NS 1,000 ML IV SCH ×2 (06:00→16:19)
[2016-06-02 07:35] LABS: BASO% 0.4 % (0.0-0.8); EOS# 0.24 X1000 (0.0-0.7); EOS% 2.6 % (0.0-10.0); HEMATOCRIT 30.8 % (37.0-47.0); HEMOGLOBIN 10.1 g/dL (12.0-16.0); IMM GRAN# 0.04 X1000 (0.0-0.04); IMM GRAN% 0.4 % (0.0-0.5); LYMPH% 21.8 % (20.5-51.1); MANUAL DIFF NEEDED? YES; MCH 29.8 PG (27-31); MCHC 32.8 g/dL (33-37); MCV 90.9 FL (81-99); MONO# 0.53 X1000 (0.11-0.59); MONO% 5.8 % (1.7-9.3); MPV 9.6 FL (7.4-10.4); PLT 194 X1000 (130-400); RBC 3.39 XMIL (4.2-5.4)
[2016-06-02 07:48] LABS: AGAP 9; BUN 11 mg/dL (8-22); CALCIUM 8.1 mg/dL (8.8-10.2); CHLORIDE 107 mmol/L (98-107); COSMO 286; POTASSIUM 3.9 mmol/L (3.5-5.1); SODIUM 142 mmol/L (136-145); TCO2 26 mmol/L (25-35)
[2016-06-02 08:32] LABS: BANDS 2 % (0-1); LYMPHS 8 % (21-51)
[2016-06-02] MEDS ORDERED: COZAAR PO SCH (09:00)
[2016-06-02] MEDS: HUMALOG SUBQ SCH ×2 (09:37→12:07)
[2016-06-02] MEDS: FLONASE NAS SCH (09:38)
[2016-06-02] MEDS: LOVENOX SUBQ SCH (09:38)
[2016-06-02] MEDS: ZYVOX PO SCH (09:38)
[2016-06-02 13:40] VITALS: BP 170/72
--- NOTE | 2016-06-02 14:34 | PROGRESS NOTE ---
DATE: 06/02/2016 The patient is being discharged today to the custodial. I have written the following orders. Patient has pansinusitis. Her IgG level was a little bit low but I am going to repeat it. At its current level I do not think it is clinically significant. The following orders have been written for the custodial: Zyvox 600 mg p.o. every 12 hours and meropenem 1 g IV every 8 hours. Both of these are for 3 weeks. I have also ordered a CBC and creatinine to be drawn every Sunday for 3 weeks. I plan to see the patient back in the office in 3 weeks. Earlier I put in a consult for the patient to see Dr. Dolan or Dr. Chavira in their office. The patient has pansinusitis and a low IgG level. She also is diabetic.
--- NOTE | 2016-06-02 15:29 | DISCHARGE SUMMARY ---
ADMISSION DATE: 05/26/2016 DISCHARGE DATE: 06/02/2016 CONSULTATIONS: Dr. Dmitry Stafford. PERTINENT PROCEDURES: Head CT showed sinusitis. No evidence of acute intracranial disease. DISCHARGE DIAGNOSES: 1. Sinusitis. The patient will be going to [facility] with IV antibiotics. 2. Sepsis, resolved. 3. Type 2 diabetes, uncontrolled. Increase Lantus. 4. Hypertension, stable. 5. Hyperlipidemia. HOSPITAL COURSE: Ms. Seals is a 71-year-old female with history of type 2 diabetes, hypertension, Hyperlipidemia who presented with chest congestion, cough, headache, shortness of breath, and sinus pain and pressure, low-grade fever. The patient did see her PCP last week and got a steroid shot as well as antibiotics. They were unsuccessful in treating her symptoms. She progressed to severe headache, nasal discharge, cough with green sputum. She reported some mild shortness of breath. She did report blurry vision but no focal deficits. In the ED, she was noted to have leukocytosis and mildly elevated lactic acid but, otherwise, unremarkable. Head CT showed fairly acute left-sided sinusitis but no intracranial disease. Chest x-ray did not show anything acute. Blood cultures were also obtained. The patient was admitted for sepsis and placed on a sepsis protocol. She was aggressively hydrated. She does have an ALLERGY TO PENICILLIN. She was started on meropenem as well as a breathing treatment. Dr. Stafford with Infectious Disease was also consulted. He believed that the patient possibly does have pansinusitis. He requested a PICC line be placed and a consult for [facility] for her IV antibiotics as well as all Zyvox by mouth. The patient did have a decrease in her IgG level; however, Dr. Stafford believed that if we would continue antibiotics for a few weeks and when she is feeling better to repeat her IgG level. The patient decided to go to rehab instead of home. Her sepsis has resolved. Her white count is 9. Vital signs at time of discharge: Temperature is 98 degrees, heart rate 87, respirations 18, blood pressure is 170/72, O2 is 98% on room air. DISCHARGE DIET: Diabetic. DISCHARGE MEDICATIONS: As per CHAVO as reconciled by Dr. Langston. FOLLOWUP: The patient is being discharged to [facility] rehab. She will follow up with Dr. Dmitry Stafford in 3 weeks. She can follow up with Dr. Christa Peña after rehab, and she can make an appointment with Dr. Vilchis to see him in his office upon discharge for pansinusitis. Discharge time: 30 minutes. Dictated by DULCE MARIA Dominique for Cj Langston MD
== END 2016-06-02 16:33 | DRG 872 ==
LOC: ED 11:39 → 3N 19:48
PROVIDERS: ATTEND Internal Medicine
PROC: 02HV33Z Insertion of Infusion Device into Superior Vena Cava, Percutaneous Approach (ICD-10-PCS; principal; 2016-05-31)
DX: A41.9 Sepsis, unspecified organism (principal); D84.9 Immunodeficiency, unspecified; E11.65 Type 2 diabetes mellitus with hyperglycemia; N39.0 Urinary tract infection, site not specified; J32.9 Chronic sinusitis, unspecified; I10 Essential (primary) hypertension; E78.5 Hyperlipidemia, unspecified; K59.00 Constipation, unspecified; B95.5 Unspecified streptococcus as the cause of diseases classified elsewhere; K21.9 Gastro-esophageal reflux disease without esophagitis; T50.996A Underdosing of other drugs, medicaments and biological substances, initial encounter; Z91.128 Patient's intentional underdosing of medication regimen for other reason; Z79.84 Long term (current) use of oral hypoglycemic drugs; Z79.899 Other long term (current) drug therapy; Z83.3 Family history of diabetes mellitus; Z82.49 Family history of ischemic heart disease and other diseases of the circulatory system; Z80.9 Family history of malignant neoplasm, unspecified
CPT/HCPCS: 36569; 70450; 71020; 80048; 80053; 81001; 82009; 82784; 82805; 82948; 83036; 83605; 83735; 84443; 85025; 85027; 85610; 87040; 87070; 87077; 87081; 87088; 87186; 87205; 87430; 87804; 93005; 94640; 94761; 96365; 96366; 96375; J1200; J1650; J1815; J2185; J2270; J2405; J3370; J7030; J7050; 97001-GP; 97116-GP